=== PATIENT | male | born 2000 | race Hispanic/Latino ===

== ENCOUNTER 2020-08-09 10:46 | Emergency (ER) | payer OTHER ==
[~2020-08-09] VITALS: Ht 177.8 cm; Wt 84.5 kg
[2020-08-09 10:57] VITALS: BP 127/76
[2020-08-09 13:21] LABS: CHLAMYDIA DNA AMPLIFICATION NEGATIVE (NEGATIVE); GC DNA AMPLIFICATION NEGATIVE (NEGATIVE)
== END 2020-08-09 11:41 | disposition home or self-care (01) ==
LOC: M ED 10:46
DX: N50.89 Other specified disorders of the male genital organs (principal)